=== PATIENT | female | born 1965 | race Caucasian/White ===

== ENCOUNTER 2017-09-04 23:00 | Inpatient (IN) | payer OTHER ==
[2017-09-05] MEDS ORDERED: DEXTROSE 5%-0.45% NACL 1,000 ML IV (01:50)
[2017-09-05] MEDS ORDERED: NACL 0.9% 3 ML SYG IV (02:00)
[2017-09-05] MEDS ORDERED: DOCUSATE SODIUM 100 MG CAP PO (02:00)
[2017-09-05] MEDS ORDERED: GLUCOSE GEL 15 GRAM TUBE PO ×2 (03:30)
[2017-09-05] MEDS ORDERED: GLUCOSE GEL 15 GRAM TUBE BUCCAL (03:30)
[2017-09-05] MEDS ORDERED: DEXTROSE 50% 50 ML SYRINGE IV ×2 (03:30)
[2017-09-05] MEDS ORDERED: GLUCAGON 1 MG INJ IM (03:30)
[2017-09-05] MEDS: SOD CHLORIDE 0.9% 1,000 ML IV ×3 (03:35→22:30)
[2017-09-05] MEDS: INSULIN ASPART [NOVOLOG] 3 ML PEN SC ×5 (04:56→21:00)
[2017-09-05] MEDS: HEPARIN 5,000 UNIT/0.5 ML VIAL SC ×3 (05:54→22:03)
[2017-09-05 07:45] LABS: CREATINE KINASE 45 IU/L (23-200)
[2017-09-05 07:57] LABS: CK INDEX 0.8; CK-MB 0.36 ng/ml (0.0-2.4)
[2017-09-05] MEDS: morphine 2 MG INJ IV (07:57)
[2017-09-05 07:59] LABS: TROPONIN-I < 0.012 ng/ml (0.000-0.120)
[2017-09-05] MEDS: ASPIRIN 81 MG TAB PO (08:57)
[2017-09-05] MEDS: ONDANSETRON 4 MG INJ IV (11:44)
[2017-09-05] MEDS ORDERED: morphine LIQ (10 MG/5 ML) CUP PO (18:00)
[2017-09-05] MEDS: ACETAMINOPHEN 325 MG TAB PO (20:13)
[2017-09-05] MEDS: ATORVASTATIN 20 MG TAB PO (20:13)
[2017-09-05] MEDS ORDERED: ATORVASTATIN 40 MG TAB PO (21:00)
[2017-09-06] MEDS: SOD CHLORIDE 0.9% 1,000 ML IV ×2 (01:47→11:51)
[2017-09-06] MEDS: ACCU-CHEK XX (02:00)
[2017-09-06] MEDS: HEPARIN 5,000 UNIT/0.5 ML VIAL SC ×3 (06:01→21:01)
[2017-09-06 07:49] LABS: ADD MAN DIFF? NO
[2017-09-06 07:52] LABS: WHITE BLOOD COUNT 5.3 10^3/ul (4.8-10.8)
[2017-09-06 07:52] LABS: BASOPHILS % 0.4 % (0.0-2.0); EOSINOPHILS # 0.1 10^3/ul (0.0-0.5); EOSINOPHILS % 1.3 % (0.0-7.0); HEMATOCRIT 35.5 % (37.0-47.0); HEMOGLOBIN 11.8 g/dl (12.0-16.0); LYMPHOCYTES # 1.9 10^3/ul (0.8-2.9); LYMPHOCYTES % 36.2 % (15.0-51.0); MEAN CORPUSCULAR HGB CONC 33.2 g/dl (32.0-37.0); MEAN CORPUSCULAR VOLUME 90.3 fl (82.0-101.0); MONOCYTE # 0.4 10^3/ul (0.3-0.9); MONOCYTES % 7.2 % (0.0-11.0); NEUTROPHIL # 2.9 10^3/ul (1.6-7.5); NEUTROPHILS % 54.7 % (39.0-77.0); PLATELET COUNT 182 10^3/UL (140-415); RED BLOOD COUNT 3.93 10^6/ul (4.20-5.40); RED CELL DISTRIBUTION WIDTH 12.6 % (11.5-14.5)
[2017-09-06] MEDS: INSULIN ASPART [NOVOLOG] 3 ML PEN SC ×4 (08:00→20:51)
[2017-09-06 08:01] LABS: HEMOGLOBIN A1C 7.4 % (0-5.9)
[2017-09-06 08:07] LABS: CREATINE KINASE 42 IU/L (23-200)
[2017-09-06 08:08] LABS: CHOLESTEROL 115 mg/dl (100-200)
[2017-09-06 08:08] LABS: CHOL/HDL RATIO 2.3 RATIO; HDL CHOLESTEROL 49 mg/dl (37-92); LDL CHOLESTEROL,CALCULATED 53 mg/dl; TRIGLYCERIDES 63 mg/dl (0-149)
[2017-09-06 08:11] LABS: ANION GAP 10 (8-16); BLOOD UREA NITROGEN 7 mg/dl (7-20); CALCIUM 8.5 mg/dl (8.4-10.2); CARBON DIOXIDE 24 mmol/L (21-31); CHLORIDE 113 mmol/L (97-110); CREATININE 0.37 mg/dl (0.44-1.00); GLUCOSE 108 mg/dl (70-220); POTASSIUM 3.9 mmol/L (3.5-5.1); SODIUM 143 mmol/L (135-144)
[2017-09-06 08:16] LABS: MAGNESIUM 1.7 mg/dl (1.7-2.5)
[2017-09-06 08:21] LABS: CK INDEX 0.6; CK-MB 0.25 ng/ml (0.0-2.4); TROPONIN-I < 0.012 ng/ml (0.000-0.120)
[2017-09-06] MEDS: ASPIRIN 81 MG TAB PO (08:49)
[2017-09-06] MEDS: REGADENOSON 0.4 MG/5 ML SYG (13:10)
[2017-09-06] MEDS: ACETAMINOPHEN 325 MG TAB PO (13:55)
[2017-09-06] MEDS: MECLIZINE 25 MG TAB PO (16:49)
[2017-09-06] MEDS: ATORVASTATIN 20 MG TAB PO (20:52)
[2017-09-07] MEDS: ACCU-CHEK XX (01:33)
[2017-09-07] MEDS: SOD CHLORIDE 0.9% 1,000 ML IV ×3 (04:20→17:13)
[2017-09-07] MEDS: HEPARIN 5,000 UNIT/0.5 ML VIAL SC ×3 (05:25→22:00)
[2017-09-07] MEDS: INSULIN ASPART [NOVOLOG] 3 ML PEN SC ×4 (08:00→20:47)
[2017-09-07] MEDS: ASPIRIN 81 MG TAB PO (08:38)
[2017-09-07] MEDS: ATORVASTATIN 20 MG TAB PO (20:36)
== END 2017-09-07 20:00 | disposition home or self-care (01) | DRG 313 ==
LOC: MS4 23:00
PROVIDERS: Hospitalist
DX: R07.9 Chest pain, unspecified (principal); R42 Dizziness and giddiness; I10 Essential (primary) hypertension; E11.9 Type 2 diabetes mellitus without complications; E78.5 Hyperlipidemia, unspecified; H53.2 Diplopia; R00.2 Palpitations; Z79.4 Long term (current) use of insulin
CPT/HCPCS: 70450; 70551; 78452; 80048; 80061; 82550; 82553; 82962; 83036; 83735; 84484; 85025; 93005; 93017; 93306; 99217; G0378